=== PATIENT | female | born 1965 | race Caucasian/White ===

== ENCOUNTER 2017-05-11 16:51 | Emergency (ER) | payer OTHER ==
[~2017-05-11] VITALS: Ht 170.2 cm; Wt 63.5 kg
[~2017-05-11 16:51] MED LIST: ALPR.25 PO; AMOX500 PO; ASPI325EC; Abilify5 MG PO; CLON.5; DIPATR PO; DULO30 PO; DULO60 PO; GABA300 PO; GABA400 PO; HYDACE10B PO; HYDACE5; LEVE500 PO; LEVSOD125 PO; LEVSOD175; LEVSOD75 PO; LORA.5 PO; LORA1 PO; MELO7.5 PO; Mobic15 MG PO; NICO21TP TD; NICO7 TOP; NICOTINE1 EAC1 TD; NITR100CA PO; Norco 10-325 T1 EACH PO; ONDA4ODT MM; OXYACE5T PO; OXYC10ER PO; OXYC5; OXYC5 PO; Oxycodone HCl20 M1 PO; PANT40 PO; PRED20 PO; PROM25 PO; RXONDA4ODT MM; SERT100
[2017-05-11] MEDS ORDERED: DULO60 PO (19:26)
[2017-05-11] MEDS ORDERED: LEVSOD100 PO (19:27)
[2017-05-11] MEDS ORDERED: LEVSOD150 PO (19:29)
[2017-05-11 19:47] LABS: Free Thyroxine 1.09 ng/dL (0.70-1.60)
[2017-05-11 19:50] LABS: Thyroid Stimulating Hormone 5.51 uIU/mL (0.360-4.800)
[2017-05-11] MEDS ORDERED: Synthroid150 MCG PO (20:18)
[2017-05-11] MEDS ORDERED: Percocet 5-3251 EACH PO (20:18)
== END 2017-05-11 20:24 | disposition home or self-care (01) ==
LOC: ER 16:51
PROVIDERS: Physician Assistant
DX: Z76.0 Encounter for issue of repeat prescription (principal); E03.9 Hypothyroidism, unspecified; M54.9 Dorsalgia, unspecified; Z88.1 Allergy status to other antibiotic agents; Z88.8 Allergy status to other drugs, medicaments and biological substances; Z79.899 Other long term (current) drug therapy; Z79.891 Long term (current) use of opiate analgesic; F17.200 Nicotine dependence, unspecified, uncomplicated
CPT/HCPCS: 36415; 84439; 84443; 99283

== ENCOUNTER → 2018-10-11 | Outpatient (CLI) | payer OTHER ==
[~2018-10-11] MED LIST changes: +LEVSOD100 PO; +LEVSOD150 PO; +Percocet 5-3251 EACH PO; +Synthroid150 MCG PO
[2018-10-11 18:20] LABS: BASOPHILS ABSOLUTE AUTO 0.07 K/mm3 (0.00-0.23); BASOPHILS PERCENT AUTO 1 % (0-2); EOSINOPHILS ABSOLUTE AUTO 0.27 K/mm3 (0.00-0.68); EOSINOPHILS PERCENT AUTO 3 % (0-6); Hematocrit 35.8 % (33.0-51.0); IMMATURE GRAN ABSOLUTE AUTO 0.02 K/mm3 (0.00-0.10); IMMATURE GRAN PERCENT AUTO 0 % (0-1); LYMPHOCYTES ABSOLUTE AUTO 2.92 K/mm3 (0.84-5.20); LYMPHOCYTES PERCENT AUTO 35 % (21-46); MONOCYTES ABSOLUTE AUTO 0.66 K/mm3 (0.16-1.47); MONOCYTES PERCENT AUTO 8 % (4-13); Mean Corpuscular HGB 24.4 pg (26.0-34.0); Mean Corpuscular HGB Conc 30.7 g/dL (31.5-36.5); Mean Corpuscular Volume 80 fL (80-100); Mean Platelet Volume 9.1 fL (9.1-12.4); NEUTROPHILS ABSOLUTE AUTO 4.52 K/mm3 (1.96-9.15); NEUTROPHILS PERCENT AUTO 54 % (41-73); Platelet Count 419 K/mm3 (150-400); RDW Coefficient Variation 16.2 % (11.7-14.2); RDW Standard Deviation 46.4 fL (35.1-46.3); White Blood Cell Count 8.46 K/mm3 (4.00-11.30)
[2018-10-11 19:00] LABS: Alanine Aminotransfer (ALT/SGP 24 U/L (12-78); Albumin, Blood 2.7 g/dL (3.4-5.0); Albumin/Globulin Ratio 0.4 (0.8-1.8); Alk Phos 125 U/L (50-136); Anion Gap 7 mmol/L (6-16); Aspartate Aminotrans (AST/SGOT 20 U/L (12-37); Bilirubin, Total 0.3 mg/dL (0.1-1.0); Blood Urea Nitrogen 17 mg/dL (8-24); Bun/Creatinine Ratio 19.5 (12.0-20.0); CHOL/HDL RATIO 1.9; CO2, Blood 24 mmol/L (21-32); Calcium, Blood 8.7 mg/dL (8.5-10.1); Chloride, Blood 102 mmol/L (98-108); Cholesterol 117 mg/dL (50-200); Creatinine, Blood 0.87 mg/dL (0.40-1.00); Globulin, Blood 6.8 g/dL (2.2-4.0); Glomerular Filtration Rate >60 (60-); Glucose, Blood 88 mg/dL (70-99); HDL Cholesterol 62 mg/dL (>39); LDL/HDL RATIO 0.6; Low Density Lipoprotein Chol 40 mg/dL (0-110); Potassium, Blood 4.1 mmol/L (3.5-5.5); Sodium, Blood 133 mmol/L (136-145); Thyroid Stimulating Hormone 0.029 uIU/mL (0.360-4.800); Total Protein, Blood 9.5 g/dL (6.4-8.2); Triglycerides 76 mg/dL (30-160); Very Low Density Lipoprot Chol 15 mg/dL (6-32)
== END | disposition home or self-care (01) ==
LOC: LAB SHORT 15:00 → LAB 15:00
DX: I10 Essential (primary) hypertension (principal); E03.9 Hypothyroidism, unspecified; Z86.2 Personal history of diseases of the blood and blood-forming organs and certain disorders involving the immune mechanism
CPT/HCPCS: 80053; 80061; 84443; 85025

== ENCOUNTER → 2024-06-28 | Outpatient (CLI) | payer BC, OTHER ==
[2024-07-03 13:36] LABS: HOURS COLLECTED 24 hr; TOTAL VOLUME 1350 mL
== END ==
LOC: LAB 13:53 → LAB SHORT 13:53
PROVIDERS: Student in an Organized Health Care Education/Training Program
DX: R77.1 Abnormality of globulin (principal)
CPT/HCPCS: 84156; 84166; 86335